=== PATIENT | male | born 1945 | race Hispanic/Latino ===

== ENCOUNTER 2017-06-27 16:55 | Observation (INO) | payer OTHER ==
[~2017-06-27] VITALS: Ht 167.6 cm; Wt 92.4 kg
[~2017-06-27 16:55] MED LIST: AMLO5TAB2 PO; ATOR10TA69 PO; CEFD300C3 PO; DUTA.5 PO; METO50TA18 PO; TAMS0.4C32 PO
[2017-06-27 18:05] LABS: BASOPHILS % (AUTO) 0.7 % (0.0-5.0); HEMATOCRIT 35.4 % (42-54); LYMPHOCYTES % (AUTO) 19.9 % (21.0-51.0); MEAN CORPUSCULAR HEMOGLOBIN 27.9 pg (27.0-33.0); MEAN CORPUSCULAR HGB CONC 34.7 g/dL (32.0-36.0); MEAN CORPUSCULAR VOLUME 80.6 fL (79-99); MONOCYTES % (AUTO) 5.8 % (3.0-13.0); NEUTROPHILS % (AUTO) 70.6 % (40.0-77.0); PLATELET COUNT (AUTO) 193 K/uL (130-400); RED CELL DISTRIBUTION WIDTH 15.7 % (11.0-15.5); WHITE BLOOD COUNT (AUTO) 5.1 K/uL (4.8-10.8)
[2017-06-27 18:17] LABS: CARBON DIOXIDE 29 mmol/L (21-32); CHLORIDE 101 mmol/L (101-111); CREATININE 1.4 mg/dL (0.5-1.5); GLOMERULAR FILTR. RATE CALC 53 mL/min (>60); GLUCOSE,RANDOM 209 mg/dL (70-105); POTASSIUM 3.6 mmol/L (3.5-5.1); SODIUM SERUM 138 mmol/L (136-145); UREA NITROGEN, BLOOD 19 mg/dL (7-18)
[2017-06-27 18:32] LABS: APPEARANCE,URINE CLEAR (CLEAR); BILIRUBIN,URINE NEGATIVE (NEGATIVE); COLOR,URINE YELLOW (YELLOW); GLUCOSE, URINE (UA) NEGATIVE (NEGATIVE); KETONES,URINE NEGATIVE (NEGATIVE); LEUKOCYTE ESTERASE ,URINE NEGATIVE (NEGATIVE); NITRATE,URINE NEGATIVE (NEGATIVE); OCCULT BLOOD,URINE NEGATIVE (NEGATIVE); PROTEIN,URINE NEGATIVE (NEGATIVE); UROBILINOGEN,URINE 0.2 mg/dL (0.2-1.0)
[2017-06-27 18:35] LABS: B-TYPE NATRIURETIC PEPTIDE 12 pg/mL (0-100)
[2017-06-27] MEDS ORDERED: SODIUM CHLORIDE 0.9% 1000ML 1,000 ML IV ONE (18:47)
[2017-06-27] MEDS ORDERED: ONDANSETRON HCL 4 MG/2 ML VIAL ONE (18:47)
[2017-06-27 18:51] LABS: ALANINE AMINOTRANSFERASE 54 U/L (12-78); ALBUMIN 3.8 g/dL (3.5-5.0); ASPARTATE AMINOTRANSFERASE 29 U/L (10-37); BILIRUBIN,DIRECT 0.1 mg/dL (0.0-0.3); BILIRUBIN,TOTAL 0.6 mg/dL (0.2-1.0); CREATINE KINASE MB < 0.5 ng/mL (0.5-3.6); CREATINE KINASE, TOTAL 113 U/L (21-232); LIPASE 277 U/L (114-286); TOTAL PROTEIN, SERUM 7.7 g/dL (6.0-8.3)
[2017-06-27] MEDS ORDERED: ASPIRIN 325 MG TABLET ONE (20:27)
[2017-06-27] MEDS ORDERED: PROCHLORPERAZINE EDISYLATE 10 MG/2 ML VIAL ONE (20:27)
[2017-06-28] MEDS ORDERED: HYDRALAZINE HCL 20 MG/ML VIAL IV PRN (14:30)
[2017-06-28 17:00] VITALS: BP 140/77
[2017-06-28 19:50] VITALS: BP 151/76
[2017-06-28] MEDS ORDERED: ASPIRIN 325 MG TABLET ONE (20:52)
[2017-06-28] MEDS: METOPROLOL TARTRATE 50 MG TAB PO SCH (20:54)
[2017-06-28] MEDS ORDERED: FAMOTIDINE 20MG TAB 20 MG TAB PO SCH ×2 (21:00)
[2017-06-28] MEDS ORDERED: ATORVASTATIN CALCIUM 10 MG TABLET PO SCH (21:00)
[2017-06-28 23:40] VITALS: BP 146/70
[2017-06-29 03:30] VITALS: BP 149/85
[2017-06-29 07:00] VITALS: BP 136/73
[2017-06-29] MEDS ORDERED: ASPIRIN 325MG EC TAB 325 MG TABLET.DR PO ONE (08:41)
[2017-06-29] MEDS ORDERED: AMLODIPINE BESYLATE 5 MG TAB PO SCH (09:00)
[2017-06-29] MEDS ORDERED: TAMSULOSIN HCL 0.4 MG CAP.ER.24H PO SCH (09:00)
[2017-06-29] MEDS ORDERED: ENOXAPARIN SODIUM 40 MG/0.4 ML SYRINGE SQ SCH (09:00)
[2017-06-29] MEDS: METOPROLOL TARTRATE 50 MG TAB PO SCH (09:00)
[2017-06-29 11:00] VITALS: BP 150/88
[2017-06-29] MEDS ORDERED: ASPI-1005 PO (13:25)
== END 2017-06-29 14:55 | disposition home or self-care (01) ==
LOC: EDH 16:55 → EDHIP 06-28 08:41 → 3AH 06-28 17:04
PROVIDERS: ADMIT Family Medicine; ATTEND Family Medicine
DX: G45.9 Transient cerebral ischemic attack, unspecified (principal); E78.5 Hyperlipidemia, unspecified; N40.0 Benign prostatic hyperplasia without lower urinary tract symptoms; I10 Essential (primary) hypertension; Z82.49 Family history of ischemic heart disease and other diseases of the circulatory system; Z79.899 Other long term (current) drug therapy
CPT/HCPCS: 36415 ×2; 70450; 70544; 70547; 70551; 80048; 80076; 81003; 82550; 82553; 83690; 83880; 84238; 84484; 85025; 93005; 93306; 93880; 96372; 99285; G0378 ×30; J0780; J1650; J2405; J7030

== ENCOUNTER → 2020-10-13 | Outpatient (CLI) | payer OTHER ==
[~2020-10-13] MED LIST changes: +ALBUTEROL SULFATE 0.083% 2.5 MG/3 ML INH IH ONE; +AMLO-257 PO; -AMLO5TAB2 PO; +ASPI-1005 PO; -CEFD300C3 PO
== END | disposition home or self-care (01) ==
LOC: RESP 13:15
PROVIDERS: ATTEND Internal Medicine Cardiovascular Disease
DX: R06.02 Shortness of breath (principal); R06.00 Dyspnea, unspecified
CPT/HCPCS: 94060; 94727; 94729

== ENCOUNTER → 2020-10-23 | Outpatient (CLI) | payer OTHER ==
[~2020-10-23] MED LIST changes: -ALBUTEROL SULFATE 0.083% 2.5 MG/3 ML INH IH ONE
== END | disposition home or self-care (01) ==
LOC: SHCH 15:26
PROVIDERS: ATTEND Internal Medicine Cardiovascular Disease
DX: I34.2 Nonrheumatic mitral (valve) stenosis (principal)
CPT/HCPCS: 93306; 93356

== ENCOUNTER 2021-03-10 06:17 | Day surgery (SDC) | payer OTHER ==
[2021-03-08 09:34] LABS: BASOPHILS % (AUTO) 0.9 % (0.0-5.0); EOSINOPHILS % (AUTO) 2.8 % (0.0-8.0); HEMATOCRIT 43.6 % (42-54); MEAN CORPUSCULAR HEMOGLOBIN 28.5 pg (27.0-33.0); MEAN CORPUSCULAR HGB CONC 34.2 g/dL (32.0-36.0); MEAN CORPUSCULAR VOLUME 83.4 fL (79-99); MONOCYTES % (AUTO) 6.7 % (3.0-13.0); NEUTROPHILS % (AUTO) 67.2 % (40.0-77.0); PLATELET COUNT (AUTO) 155 K/uL (130-400); RED BLOOD CELL COUNT(AUTO) 5.23 MIL/uL (4.50-6.20); RED CELL DISTRIBUTION WIDTH 13.6 % (11.0-15.5); WHITE BLOOD COUNT (AUTO) 5.4 K/uL (4.8-10.8)
[2021-03-08 09:47] LABS: CREATININE 1.2 mg/dL (0.5-1.5); POTASSIUM 4.3 mmol/L (3.5-5.1)
[2021-03-08 09:50] LABS: APPEARANCE,URINE Clear (CLEAR); BILIRUBIN,URINE Negative (NEGATIVE); COLOR,URINE Yellow (YELLOW); GLUCOSE, URINE (UA) Negative (NEGATIVE); KETONES,URINE Negative (NEGATIVE); LEUKOCYTE ESTERASE ,URINE Negative (NEGATIVE); NITRATE,URINE Negative (NEGATIVE); OCCULT BLOOD,URINE Negative (NEGATIVE); PROTEIN,URINE Negative (NEGATIVE); UROBILINOGEN,URINE 0.2 mg/dL (0.2-1.0)
[2021-03-08 09:51] LABS: INR 1.05 (0.85-1.15); PROTHROMBIN TIME 11.4 SEC (9.6-11.6)
[2021-03-08 10:00] LABS: PARTIAL THROMBOPLASTIN TIME 32.7 SEC (26.3-35.5)
[2021-03-09 09:30] VITALS: BP 164/79
[~2021-03-10] VITALS: Ht 167.6 cm; Wt 90.0 kg
[2021-03-10] VITALS (10 sets, daily range): BP systolic 137–187; BP diastolic 70–96
[~2021-03-10 06:17] MED LIST changes: +0.9% NACL 500ML IV.SOLN 500 ML IV SCH; +AMLO2.5T4 PO; +NITR0.4T50 SL; +ROSU20TA31 PO; +TAMS-1 PO
[2021-03-10] MEDS ORDERED: 0.9%NACL 1000ML 1,000 ML IV ONE (07:46)
[2021-03-10] MEDS ORDERED: NITROGLYCERIN 2 MG VIAL IV ONE (08:16)
[2021-03-10] MEDS ORDERED: IOHEXOL-350 50ML VIAL IV ONE (08:17)
[2021-03-10] MEDS ORDERED: IOHEXOL 350 MG/ML 100ML INFUS..BTL IV ONE (08:17)
[2021-03-10] MEDS ORDERED: MIDAZOLAM HCL 1 MG/ML 2ML VIAL ONE (08:17)
[2021-03-10] MEDS ORDERED: FENTANYL CITRATE PF 50 MCG/1 ML 2ML VIAL ONE (08:17)
[2021-03-10] MEDS ORDERED: LIDOCAINE HCL 400MG/20ML VIAL ONE (08:17)
[2021-03-10] MEDS ORDERED: NICARDIPINE 25MG INJ IV ONE (08:25)
[2021-03-10] MEDS ORDERED: SODIUM BICARB 50MEQ 50ML VIAL 50 ML ONE (08:30)
[2021-03-10] MEDS ORDERED: HEPARIN 10,000 UNIT/10ML (1,000 UNIT/ML) VIAL ONE (08:31)
[2021-03-10] MEDS ORDERED: IOHEXOL-350 75 ML VIAL IV ONE (09:04)
[2021-03-10] MEDS ORDERED: 0.9%NACL 1000ML 1,000 ML IV SCH (09:30)
== END 2021-03-10 14:29 | disposition home or self-care (01) ==
LOC: DAH 06:17
PROVIDERS: ATTEND Internal Medicine Cardiovascular Disease
DX: I35.0 Nonrheumatic aortic (valve) stenosis (principal); I25.119 Atherosclerotic heart disease of native coronary artery with unspecified angina pectoris; I73.9 Peripheral vascular disease, unspecified; L97.429 Non-pressure chronic ulcer of left heel and midfoot with unspecified severity; I10 Essential (primary) hypertension; E78.5 Hyperlipidemia, unspecified; R53.83 Other fatigue; Z82.49 Family history of ischemic heart disease and other diseases of the circulatory system; Z83.3 Family history of diabetes mellitus; Z83.438 Family history of other disorder of lipoprotein metabolism and other lipidemia; Z79.01 Long term (current) use of anticoagulants
CPT/HCPCS: 36415; 71045; 80048; 81003; 85025; 85610; 85730; 93005; 93454; 93880; A4215; A4216; A4221; A4222; A4223 ×3; A4606; A4663; C1769; C1894; J1644 ×2; J3490 ×4; J7030; Q9965; Q9967 ×2; J2250; J3010

== ENCOUNTER 2021-04-04 09:55 | Inpatient (IN) | payer OTHER ==
[2021-04-01 13:04] LABS: BASOPHILS % (AUTO) 0.9 % (0.0-5.0); EOSINOPHILS % (AUTO) 2.9 % (0.0-8.0); HEMATOCRIT 43.6 % (42-54); LYMPHOCYTES % (AUTO) 24.9 % (21.0-51.0); MEAN CORPUSCULAR HEMOGLOBIN 28.5 pg (27.0-33.0); MEAN CORPUSCULAR HGB CONC 33.9 g/dL (32.0-36.0); MONOCYTES % (AUTO) 6.7 % (3.0-13.0); NEUTROPHILS % (AUTO) 64.2 % (40.0-77.0); PLATELET COUNT (AUTO) 163 K/uL (130-400); RED BLOOD CELL COUNT(AUTO) 5.19 MIL/uL (4.50-6.20); RED CELL DISTRIBUTION WIDTH 13.4 % (11.0-15.5); WHITE BLOOD COUNT (AUTO) 5.5 K/uL (4.8-10.8)
[2021-04-01 13:12] LABS: HEMOGLOBIN A1C 7.3 % (4.0-6.0)
[2021-04-01 13:16] LABS: INR 1.08 (0.85-1.15); PROTHROMBIN TIME 11.7 SEC (9.6-11.6)
[2021-04-01 13:17] LABS: PARTIAL THROMBOPLASTIN TIME 33.2 SEC (26.3-35.5)
[2021-04-01 13:20] LABS: ALBUMIN 4.1 g/dL (3.5-5.0); BILIRUBIN,TOTAL 0.8 mg/dL (0.2-1.0); CREATININE 1.2 mg/dL (0.5-1.5); POTASSIUM 4.4 mmol/L (3.5-5.1); TOTAL PROTEIN, SERUM 8.2 g/dL (6.0-8.3)
[2021-04-01 13:58] LABS: ABG BASE EXCESS -1.9 mmol/L (-2.0-3.0); ABG HCO3 21.8 mmol/L (21.0-28.0); ABG OXYGEN SATURATION 97.8 % (95.0-99.0); ABG PCO2 34 mmHg (35-48)
[~2021-04-04] VITALS: Ht 167.6 cm; Wt 89.2 kg
[2021-04-04 09:29] VITALS: BP 192/75
[~2021-04-04 09:55] MED LIST changes: -0.9% NACL 500ML IV.SOLN 500 ML IV SCH; -AMLO-257 PO; -ASPI-1005 PO; -ATOR10TA69 PO; +CEFAZOLIN SODIUM 1 GM VIAL IVP ONE; -DUTA.5 PO; -TAMS0.4C32 PO
[2021-04-05] VITALS (28 sets, daily range): BP systolic 123–226; BP diastolic 47–111
[2021-04-05] MEDS ORDERED: DELNIDO FORMULA 2 BAG IV ONE (08:09)
[2021-04-05] MEDS ORDERED: NOREPINEPHRINE BITARTRATE 8 MG/NS 250ML IV SCH ×2 (08:30)
[2021-04-05] MEDS ORDERED: AMINOCAPROIC ACID IV SCH (08:30)
[2021-04-05] MEDS ORDERED: EPINEPHRINE PF 1MG AMP 10 MG in 0.9% NACL 250ML 250 ML IV SCH (08:30)
[2021-04-05] MEDS ORDERED: SODIUM CHLORIDE 0.9% IV SCH (08:30)
[2021-04-05] MEDS ORDERED: NITROGLYCERIN 50MG/D5W 250ML 1 BOT ONE (09:26)
[2021-04-05] MEDS ORDERED: LACTATED RINGERS 1000ML 1,000 ML IV ONE (09:54)
[2021-04-05] MEDS ORDERED: CEFAZOLIN SODIUM 1 GM VIAL ONE ×2 (09:57→11:48)
[2021-04-05] MEDS ORDERED: SODIUM BICARB 50MEQ 50ML VIAL 150 ML ONE (10:05)
[2021-04-05] MEDS ORDERED: NOREPINEPHRINE BITARTRATE 1 MG/1 ML ML IV ONE (10:05)
[2021-04-05] MEDS ORDERED: HEPARIN 10,000 UNIT/10ML (1,000 UNIT/ML) VIAL ONE (10:05)
[2021-04-05] MEDS ORDERED: EPINEPHRINE PF 1MG AMP ONE (10:05)
[2021-04-05] MEDS ORDERED: ESMOLOL HCL 10 MG/ML 10 ML VIAL ONE (10:05)
[2021-04-05] MEDS ORDERED: PROTAMINE SULFATE 10 MG/ML 25ML VIAL IV ONE (10:05)
[2021-04-05] MEDS ORDERED: AMINOCAPROIC ACID 5,000MG VIAL ONE (10:05)
[2021-04-05] MEDS ORDERED: LIDOCAINE PF 100MG/5ML (2%) SYRINGE 5ML ONE (10:05)
[2021-04-05] MEDS ORDERED: PROPOFOL 10 MG/ML 20ML VIAL IV ONE (10:06)
[2021-04-05] MEDS ORDERED: MIDAZOLAM HCL 1 MG/ML 2ML VIAL ONE (10:06)
[2021-04-05] MEDS ORDERED: ROCURONIUM 10MG/1ML SYR 10 MG/ML ML ONE ×2 (10:06→14:31)
[2021-04-05] MEDS ORDERED: FENTANYL CITRATE PF 50 MCG/1 ML 20ML VIAL IJ ONE (10:06)
[2021-04-05] MEDS ORDERED: KETAMINE 50MG/ML SYRINGE 50 MG/ML DISP.SYRIN IV ONE (10:07)
[2021-04-05] MEDS ORDERED: 0.9%NACL 1000ML 1,000 ML IV ONE (10:11)
[2021-04-05] MEDS ORDERED: ROPIVACAINE 0.5% 5MG/ML 30ML IJ ONE (11:48)
[2021-04-05 11:56] LABS: ABG BASE EXCESS -2.6 mmol/L (-2.0-3.0); ABG HCO3 26.5 mmol/L (21.0-28.0); ABG OXYGEN SATURATION 99.1 % (95.0-99.0); ABG PCO2 67 mmHg (35-48)
[2021-04-05 13:02] LABS: ABG BASE EXCESS -1.5 mmol/L (-2.0-3.0); ABG OXYGEN SATURATION 98.8 % (95.0-99.0); ABG PCO2 44 mmHg (35-48)
[2021-04-05 13:38] LABS: ABG BASE EXCESS 1.6 mmol/L (-2.0-3.0); ABG HCO3 23.9 mmol/L (21.0-28.0); ABG OXYGEN SATURATION 98.4 % (95.0-99.0); ABG PCO2 31 mmHg (35-48)
[2021-04-05] MEDS ORDERED: AMIODARONE 150MG VIAL ONE (13:51)
[2021-04-05] MEDS ORDERED: GLYCOPYRROLATE 1 MG/5 ML SYRINGE ONE (13:53)
[2021-04-05] MEDS ORDERED: 0.9% NACL 500ML IV.SOLN 500 ML IV SCH (14:30)
[2021-04-05] MEDS ORDERED: ALBUMIN (HUMAN) 5% 250 ML IV PRN (14:30)
[2021-04-05] MEDS ORDERED: MAGNESIUM 2GM PREMIX 50ML 50 ML IV PRN (14:30)
[2021-04-05] MEDS ORDERED: AMINOCAPROIC ACID 5,000MG VIAL 15,000 MG in 0.9% NACL 250ML 250 ML IV SCH (14:30)
[2021-04-05] MEDS ORDERED: ACETAMINOPHEN 325 MG TAB PO PRN (14:30)
[2021-04-05] MEDS ORDERED: MORPHINE 2 MG SYG IV PRN (14:30)
[2021-04-05] MEDS ORDERED: ONDANSETRON 4MG INJ IV PRN (14:30)
[2021-04-05] MEDS ORDERED: POTASSIUM PHOS 15 mMOL+NS250ML 250 ML IV PRN (14:30)
[2021-04-05] MEDS ORDERED: ACETAMINOPHEN 650 MG SUPPOSITORY RC PRN (14:30)
[2021-04-05] MEDS ORDERED: DEXTROSE 50%-WATER 50 ML DISP.SYRIN IV PRN (14:30)
[2021-04-05] MEDS ORDERED: EPINEPHRINE PF 1MG AMP 10 MG in DEXTROSE 5%-WATER 250 ML IV PRN (14:30)
[2021-04-05] MEDS ORDERED: 0.9%NACL 1000ML 1,000 ML IV SCH (14:30)
[2021-04-05] MEDS ORDERED: PROPOFOL 1000 MG/100 ML 100 ML IV PRN (14:30)
[2021-04-05] MEDS ORDERED: GLUCAGON 1MG KIT 1 MG ML IM PRN (14:30)
[2021-04-05] MEDS ORDERED: MORPHINE 4 MG SYG IV PRN (14:30)
[2021-04-05] MEDS ORDERED: NOREPINEPHRIN 4MG/NS 250ML 250 ML IV PRN (14:30)
[2021-04-05] MEDS ORDERED: NITROGLYCERIN 50MG/D5W 250ML 250 BOT IV SCH (14:30)
[2021-04-05] MEDS ORDERED: 0.9%NACL 10ML VIAL IVP PRN (14:30)
[2021-04-05 14:37] LABS: ABG BASE EXCESS -1.8 mmol/L (-2.0-3.0); ABG HCO3 22.8 mmol/L (21.0-28.0); ABG PCO2 38 mmHg (35-48)
[2021-04-05 15:08] LABS: HEMATOCRIT 35.8 % (42-54); MEAN CORPUSCULAR HEMOGLOBIN 28.4 pg (27.0-33.0); MEAN CORPUSCULAR HGB CONC 34.6 g/dL (32.0-36.0); MEAN CORPUSCULAR VOLUME 81.9 fL (79-99); RED BLOOD CELL COUNT(AUTO) 4.37 MIL/uL (4.50-6.20); RED CELL DISTRIBUTION WIDTH 13.3 % (11.0-15.5); WHITE BLOOD COUNT (AUTO) 8.9 K/uL (4.8-10.8)
[2021-04-05 15:21] LABS: INR 1.17 (0.85-1.15); PROTHROMBIN TIME 12.6 SEC (9.6-11.6)
[2021-04-05 15:24] LABS: CREATININE 1.1 mg/dL (0.5-1.5); MAGNESIUM 3.1 mg/dL (1.80-2.40); PHOSPHORUS 2.9 mg/dL (2.5-4.9); POTASSIUM 4.9 mmol/L (3.5-5.1)
[2021-04-05] MEDS: 0.2% ROPIVACAINE 600ML Q-PUMP IRRIG SCH (15:30)
[2021-04-05 15:34] LABS: ABG BASE EXCESS -2.7 mmol/L (-2.0-3.0); ABG HCO3 21.8 mmol/L (21.0-28.0); ABG OXYGEN SATURATION 97.1 % (95.0-99.0); ABG PCO2 37 mmHg (35-48)
[2021-04-05] MEDS ORDERED: NICARDIPINE IV PRN ×2 (16:00)
[2021-04-05] MEDS ORDERED: SODIUM CHLORIDE IV PRN ×2 (16:00)
[2021-04-05] MEDS: INSULIN REGULAR, HUMAN 3ML 100 UNIT in 0.9%NACL 100ML 99 ML IV SCH ×2 (16:02)
[2021-04-05] MEDS ORDERED: MAGNESIUM SULFATE 1 GM/2 ML VIAL IM ONE (16:57)
[2021-04-05] MEDS ORDERED: HEPARIN 10,000 UNIT/10ML (1,000 UNIT/ML) VIAL IV ONE (16:57)
[2021-04-05] MEDS ORDERED: LIDOCAINE PF 100MG/5ML (2%) SYRINGE 5ML IVP ONE (16:57)
[2021-04-05] MEDS ORDERED: SODIUM BICARB 8.4% 50ML SYRINGE IVP ONE (16:57)
[2021-04-05] MEDS ORDERED: CACL 1GM SYG IVP ONE (16:57)
[2021-04-05] MEDS ORDERED: AMINOCAPROIC ACID 5,000MG VIAL IV ONE (16:57)
[2021-04-05] MEDS ORDERED: PHENYLEPHRINE HCL 10 MG/ML 1ML VIAL IV ONE (16:57)
[2021-04-05 17:01] LABS: ABG BASE EXCESS -1.9 mmol/L (-2.0-3.0); ABG HCO3 22.6 mmol/L (21.0-28.0); ABG OXYGEN SATURATION 96.2 % (95.0-99.0); ABG PCO2 38 mmHg (35-48)
[2021-04-05] MEDS: SODIUM BICARB 50MEQ 50ML VIAL IV PRN ×3 (17:10→20:52)
[2021-04-05] MEDS: POTASSIUM CHLORIDE 20MEQ/100ML 100 ML IV PRN ×5 (17:10→23:15)
[2021-04-05 18:26] LABS: ABG BASE EXCESS -2.3 mmol/L (-2.0-3.0); ABG HCO3 21.5 mmol/L (21.0-28.0); ABG OXYGEN SATURATION 96.9 % (95.0-99.0); ABG PCO2 35 mmHg (35-48)
[2021-04-05] MEDS ORDERED: CALCIUM GLUC 1GM/10ML VIAL ONE (18:40)
[2021-04-05] MEDS ORDERED: 0.9%NACL 100ML 100 ML ONE (18:42)
[2021-04-05] MEDS: CALCIUM GLUC 1GM 1 GM in 0.9%NACL 50ML 50 ML IV PRN (18:44)
[2021-04-05] MEDS: CEFAZOLIN SODIUM 1 GM VIAL IV SCH (20:35)
[2021-04-05] MEDS: FUROSEMIDE 20MG VIAL IV SCH (20:35)
[2021-04-05] MEDS: FAMOTIDINE 20MG VIAL IV SCH (20:35)
[2021-04-05] MEDS: TAMSULOSIN HCL 0.4 MG CAP.ER.24H PO SCH (20:36)
[2021-04-05] MEDS: ATORVASTATIN 40 MG TABLET PO SCH (20:36)
[2021-04-05 20:39] LABS: ABG BASE EXCESS -1.5 mmol/L (-2.0-3.0); ABG HCO3 23.3 mmol/L (21.0-28.0); ABG PCO2 40 mmHg (35-48)
[2021-04-05 21:43] LABS: ABG BASE EXCESS 0.4 mmol/L (-2.0-3.0); ABG HCO3 24.1 mmol/L (21.0-28.0); ABG OXYGEN SATURATION 97.2 % (95.0-99.0); ABG PCO2 36 mmHg (35-48)
[2021-04-06] VITALS (12 sets, daily range): BP systolic 125–159; BP diastolic 47–86
[2021-04-06 00:11] LABS: MAGNESIUM 2.4 mg/dL (1.80-2.40); POTASSIUM 4.4 mmol/L (3.5-5.1)
[2021-04-06] MEDS ORDERED: CALCIUM GLUC 1GM/10ML VIAL ONE (00:20)
[2021-04-06] MEDS: CALCIUM GLUC 1GM 1 GM in 0.9%NACL 50ML 50 ML IV PRN (00:33)
[2021-04-06] MEDS: TRAMADOL HCL 50 MG TABLET PO PRN ×2 (00:51→07:16)
[2021-04-06 03:41] LABS: HEMATOCRIT 39.9 % (42-54); MEAN CORPUSCULAR HEMOGLOBIN 27.9 pg (27.0-33.0); MEAN CORPUSCULAR HGB CONC 33.3 g/dL (32.0-36.0); MEAN CORPUSCULAR VOLUME 83.8 fL (79-99); RED BLOOD CELL COUNT(AUTO) 4.76 MIL/uL (4.50-6.20); RED CELL DISTRIBUTION WIDTH 13.6 % (11.0-15.5); WHITE BLOOD COUNT (AUTO) 10.1 K/uL (4.8-10.8)
[2021-04-06 03:51] LABS: CREATININE 1.5 mg/dL (0.5-1.5); POTASSIUM 3.8 mmol/L (3.5-5.1)
[2021-04-06] MEDS: CEFAZOLIN SODIUM 1 GM VIAL IV SCH ×2 (03:53→12:45)
[2021-04-06] MEDS: POTASSIUM CHLORIDE 20MEQ/100ML 100 ML IV PRN (04:13)
[2021-04-06 04:19] LABS: ABG BASE EXCESS 2.6 mmol/L (-2.0-3.0); ABG HCO3 26.5 mmol/L (21.0-28.0); ABG PCO2 39 mmHg (35-48)
[2021-04-06] MEDS: INSULIN REGULAR, HUMAN 3ML 100 UNIT in 0.9%NACL 100ML 99 ML IV SCH ×2 (07:14)
[2021-04-06] MEDS: FAMOTIDINE 20MG VIAL IV SCH ×2 (07:56→19:43)
[2021-04-06] MEDS: ASPIRIN 81 MG EC TAB PO SCH (07:56)
[2021-04-06] MEDS: FUROSEMIDE 20MG VIAL IV SCH ×2 (07:56→19:45)
[2021-04-06] MEDS: AMLODIPINE 2.5 MG TAB PO SCH (07:57)
[2021-04-06] MEDS: METOPROLOL TARTRATE 50 MG TAB PO SCH ×2 (07:57→19:43)
[2021-04-06] MEDS: 0.2% ROPIVACAINE 600ML Q-PUMP IRRIG SCH (14:30)
[2021-04-06] MEDS: ATORVASTATIN 40 MG TABLET PO SCH (19:43)
[2021-04-06] MEDS: TAMSULOSIN HCL 0.4 MG CAP.ER.24H PO SCH (19:43)
[2021-04-07] VITALS (10 sets, daily range): BP systolic 128–152; BP diastolic 63–80
[2021-04-07 08:44] LABS: BASOPHILS % (AUTO) 0.2 % (0.0-5.0); EOSINOPHILS % (AUTO) 0.2 % (0.0-8.0); HEMATOCRIT 37.3 % (42-54); LYMPHOCYTES % (AUTO) 9.6 % (21.0-51.0); MEAN CORPUSCULAR HEMOGLOBIN 28.3 pg (27.0-33.0); MEAN CORPUSCULAR HGB CONC 33.5 g/dL (32.0-36.0); MEAN CORPUSCULAR VOLUME 84.4 fL (79-99); MONOCYTES % (AUTO) 5.7 % (3.0-13.0); NEUTROPHILS % (AUTO) 83.9 % (40.0-77.0); PLATELET COUNT (AUTO) 95 K/uL (130-400); RED BLOOD CELL COUNT(AUTO) 4.42 MIL/uL (4.50-6.20); RED CELL DISTRIBUTION WIDTH 13.6 % (11.0-15.5); WHITE BLOOD COUNT (AUTO) 9.4 K/uL (4.8-10.8)
[2021-04-07 08:51] LABS: CREATININE 1.1 mg/dL (0.5-1.5); MAGNESIUM 1.7 mg/dL (1.80-2.40); POTASSIUM 3.5 mmol/L (3.5-5.1)
[2021-04-07] MEDS ORDERED: METOPROLOL TARTRATE 25 MG TAB PO SCH (09:00)
[2021-04-07] MEDS ORDERED: FAMOTIDINE 20MG TAB ONE (09:18)
[2021-04-07] MEDS: FAMOTIDINE 20MG VIAL IV SCH ×2 (09:39→19:57)
[2021-04-07] MEDS: METOPROLOL TARTRATE 50 MG TAB PO SCH ×2 (09:40→19:57)
[2021-04-07] MEDS: AMLODIPINE 2.5 MG TAB PO SCH (09:40)
[2021-04-07] MEDS: FUROSEMIDE 20 MG TABLET PO SCH ×2 (09:40→16:44)
[2021-04-07] MEDS: ASPIRIN 81 MG EC TAB PO SCH (09:40)
[2021-04-07] MEDS: POTASSIUM CHLORIDE 20MEQ/100ML 100 ML IV PRN (16:45)
[2021-04-07] MEDS ORDERED: KCL 20 MEQ ERTAB PO ONE (18:39)
[2021-04-07] MEDS: ATORVASTATIN 40 MG TABLET PO SCH (19:57)
[2021-04-07] MEDS: TAMSULOSIN HCL 0.4 MG CAP.ER.24H PO SCH (19:57)
[2021-04-08] VITALS (7 sets, daily range): BP systolic 104–150; BP diastolic 49–82
[2021-04-08] MEDS: FUROSEMIDE 20 MG TABLET PO SCH ×2 (08:33→17:57)
[2021-04-08] MEDS: METOPROLOL TARTRATE 50 MG TAB PO SCH ×3 (08:33→21:00)
[2021-04-08] MEDS: FAMOTIDINE 20MG VIAL IV SCH ×2 (08:33→20:35)
[2021-04-08] MEDS: ASPIRIN 81 MG EC TAB PO SCH (08:33)
[2021-04-08] MEDS: ENOXAPARIN SODIUM 30 MG/0.3 ML SQ SCH (08:34)
[2021-04-08] MEDS: AMLODIPINE 5 MG TAB PO SCH (08:35)
[2021-04-08] MEDS: TRAMADOL HCL 50 MG TABLET PO PRN ×2 (10:25→18:04)
[2021-04-08] MEDS: ATORVASTATIN 40 MG TABLET PO SCH (20:35)
[2021-04-08] MEDS: TAMSULOSIN HCL 0.4 MG CAP.ER.24H PO SCH (20:35)
[2021-04-09 03:52] VITALS: BP 131/84
[2021-04-09] MEDS: TRAMADOL HCL 50 MG TABLET PO PRN ×2 (06:00→18:24)
[2021-04-09 07:00] VITALS: BP 141/84
[2021-04-09] MEDS: METOPROLOL TARTRATE 50 MG TAB PO SCH ×2 (08:26→20:22)
[2021-04-09] MEDS: FAMOTIDINE 20MG TAB PO SCH ×2 (08:26→20:22)
[2021-04-09] MEDS: FUROSEMIDE 20 MG TABLET PO SCH ×2 (08:26→16:39)
[2021-04-09] MEDS: AMLODIPINE 5 MG TAB PO SCH (08:26)
[2021-04-09] MEDS: ASPIRIN 81 MG EC TAB PO SCH (08:27)
[2021-04-09] MEDS: ENOXAPARIN SODIUM 30 MG/0.3 ML SQ SCH (08:31)
[2021-04-09 11:00] VITALS: BP 131/71
[2021-04-09 16:00] VITALS: BP 141/66
[2021-04-09 19:14] VITALS: BP 140/67
[2021-04-09] MEDS: TAMSULOSIN HCL 0.4 MG CAP.ER.24H PO SCH (20:22)
[2021-04-09] MEDS: ATORVASTATIN 40 MG TABLET PO SCH (20:22)
[2021-04-09 23:40] VITALS: BP 130/74
[2021-04-10 03:54] VITALS: BP 122/59
[2021-04-10] MEDS: TRAMADOL HCL 50 MG TABLET PO PRN ×2 (05:53→11:54)
[2021-04-10 08:00] VITALS: BP 149/68
[2021-04-10] MEDS: FUROSEMIDE 20 MG TABLET PO SCH (08:24)
[2021-04-10] MEDS: AMLODIPINE 5 MG TAB PO SCH (08:24)
[2021-04-10] MEDS: FAMOTIDINE 20MG TAB PO SCH (08:24)
[2021-04-10] MEDS: ENOXAPARIN SODIUM 30 MG/0.3 ML SQ SCH (08:24)
[2021-04-10] MEDS: METOPROLOL TARTRATE 50 MG TAB PO SCH (08:24)
[2021-04-10] MEDS: ASPIRIN 81 MG EC TAB PO SCH (08:27)
[2021-04-10] MEDS ORDERED: AMLO2.5T2 PO (10:11)
[2021-04-10 11:00] VITALS: BP 123/67
[2021-04-10] MEDS ORDERED: FURO20TA4 PO (11:41)
[2021-04-10] MEDS ORDERED: ASPI-1197 PO (11:42)
[2021-04-10] MEDS ORDERED: TRAM-355 PO (12:20)
== END 2021-04-10 15:00 | disposition home or self-care (01) | DRG 219 ==
LOC: DAHIP 04-05 09:00 → 2CV 04-05 13:24 → 2CH 04-06 05:58 → 2AH 04-08 06:29
PROVIDERS: ADMIT Thoracic Surgery (Cardiothoracic Vascular Surgery); ATTEND Thoracic Surgery (Cardiothoracic Vascular Surgery)
PROC: 02RF08Z Replacement of Aortic Valve with Zooplastic Tissue, Open Approach (ICD-10-PCS; principal; 2021-04-05 11:27)
PROC: 5A1221Z Performance of Cardiac Output, Continuous (ICD-10-PCS; 2021-04-05 11:27)
DX: I35.0 Nonrheumatic aortic (valve) stenosis (principal); I50.33 Acute on chronic diastolic (congestive) heart failure; E78.5 Hyperlipidemia, unspecified; Z20.822 Contact with and (suspected) exposure to COVID-19; E78.00 Pure hypercholesterolemia, unspecified; E87.70 Fluid overload, unspecified; D64.9 Anemia, unspecified; E66.9 Obesity, unspecified; Z68.32 Body mass index [BMI] 32.0-32.9, adult; Z79.899 Other long term (current) drug therapy; Z86.19 Personal history of other infectious and parasitic diseases; I11.0 Hypertensive heart disease with heart failure
CPT/HCPCS: 36415; 36600; 71045; 71046; 80048; 80053; 80061; 82330; 82435; 82803; 82947; 82948; 83036; 83605; 83735; 84100; 84132; 84295; 85018; 85025; 85027; 85347; 85610; 85730; 87635; 88305; 88311; 93005; 93313; 93318; 94002; 94010; 94150; 97039; A7048; G0378; J0171; J0282; J0610; J0690; J1644; J1650; J1815; J1940; J2001; J2250; J2270; J2370; J2405; J2704; J2720; J2795; J3010; J3475; J3480; J3490; J7030; J7040; J7050; J7120

== ENCOUNTER → 2022-10-27 | Outpatient (CLI) | payer OTHER ==
[~2022-10-27] MED LIST changes: +AMLO2.5T2 PO; -AMLO2.5T4 PO; +ASPI-1197 PO; -CEFAZOLIN SODIUM 1 GM VIAL IVP ONE; +FURO20TA4 PO; -ROSU20TA31 PO; +ROSU20TA73 PO
[2022-10-27 12:24] LABS: ALBUMIN 3.8 g/dL (3.5-5.0); CREATININE 1.2 mg/dL (0.5-1.5); TOTAL PROTEIN, SERUM 7.4 g/dL (6.0-8.3)
== END | disposition home or self-care (01) ==
LOC: LAB 08:28
PROVIDERS: ATTEND Internal Medicine Cardiovascular Disease
DX: E11.9 Type 2 diabetes mellitus without complications (principal); E78.00 Pure hypercholesterolemia, unspecified; R42 Dizziness and giddiness
CPT/HCPCS: 36415; 80053; 80061

== ENCOUNTER → 2023-03-05 | Outpatient (CLI) | payer OTHER ==
[2023-03-05 12:19] LABS: ALBUMIN 3.8 g/dL (3.5-5.0); BILIRUBIN,TOTAL 0.8 mg/dL (0.2-1.0); CREATININE 1.3 mg/dL (0.5-1.5); POTASSIUM 4.2 mmol/L (3.5-5.1); TOTAL PROTEIN, SERUM 7.4 g/dL (6.0-8.3)
== END | disposition home or self-care (01) ==
LOC: LAB 08:04
PROVIDERS: ATTEND Internal Medicine Cardiovascular Disease
DX: E78.5 Hyperlipidemia, unspecified (principal)
CPT/HCPCS: 36415; 80053; 80061

== ENCOUNTER → 2023-05-11 | Outpatient (CLI) | payer OTHER ==
[~2023-05-11] MED LIST changes: +GADOTERATE MEGLUMINE 5 MMOL/10 ML VIAL IV ONE
== END | disposition home or self-care (01) ==
LOC: RAH 13:44
PROVIDERS: ATTEND Family Medicine
DX: R90.82 White matter disease, unspecified (principal); R27.0 Ataxia, unspecified; R51.9 Headache, unspecified
CPT/HCPCS: 70553; A9575

== ENCOUNTER → 2023-10-05 | Outpatient (CLI) | payer OTHER ==
[~2023-10-05] MED LIST changes: -GADOTERATE MEGLUMINE 5 MMOL/10 ML VIAL IV ONE
[2023-10-05 15:44] LABS: CREATININE 1.2 mg/dL (0.5-1.3); POTASSIUM 4.2 mmol/L (3.5-5.1)
== END | disposition home or self-care (01) ==
LOC: LAB 11:39
PROVIDERS: ATTEND Internal Medicine Cardiovascular Disease
DX: E78.2 Mixed hyperlipidemia (principal); E11.59 Type 2 diabetes mellitus with other circulatory complications
CPT/HCPCS: 36415; 80048

== ENCOUNTER 2023-10-17 22:50 | Emergency (ER) | payer OTHER ==
[~2023-10-17] VITALS: Ht 167.6 cm; Wt 93.4 kg
[2023-10-17 23:23] VITALS: BP 159/74; PULSE 76; RESP 18; O2SAT 98
== END 2023-10-17 23:51 | disposition home or self-care (01) ==
LOC: EDH 22:50
DX: M79.651 Pain in right thigh (principal); I10 Essential (primary) hypertension; E11.9 Type 2 diabetes mellitus without complications; E78.00 Pure hypercholesterolemia, unspecified; Z79.899 Other long term (current) drug therapy; Z98.890 Other specified postprocedural states